=== PATIENT | female | born 1970 | race Caucasian/White ===

== ENCOUNTER 2019-05-20 08:14 | Outpatient (CLI) | payer OTHER, SELFPAY ==
--- NOTE | 2019-05-20 08:26 | MM_ITS ---
WS: [id number] BILATERAL DIGITAL DIAGNOSTIC MAMMOGRAM MAMMOGRAPHY WITH CAD CLINICAL INFORMATION: RT BREAST MASS HISTORY: Right breast lump COMPARISON: July 10, 2017 TECHNIQUE: Bilateral CC, MLO, and ML views. FINDINGS: The breasts are composed of heterogeneous fibroglandular density, which can limit the detection of sm all underlying mass lesions. Scattered punctate calcifications right breast. Palpable marker along th e right axillary tail. No definite mammographic abnormalities in this area. Ultrasound is pending. Unremarkable left breast. ULTRASOUND BREAST RIGHT TECHNIQUE: Ultrasound right breast focused area of concern. CLINICAL INFORMATION: RT BREAST MASS COMPARISON: None. FINDINGS: Ultrasound right breast area of concern axillary tail at 11-12:00 position. Normal-appearing underlyi ng breast tissue. No evidence of cystic or solid lesions. No lesions to target for biopsy. MM/[place] [id number] IMPRESSION: BI-RADS: 2-Benign FOLLOW UP: 1 Year Follow-up Recommend return to annual screening mammography.
== END 2019-05-20 08:15 | disposition home or self-care (01) ==
LOC: RADSHAW 08:16
PROVIDERS: Family Provider Family Medicine; PCP Family Medicine; Visit Provider Family Medicine
DX: N63.10 Unspecified lump in the right breast, unspecified quadrant (principal)
CPT/HCPCS: 76642; 77066

== ENCOUNTER → 2022-01-16 10:11 | Outpatient (BNVA) | payer OTHER, SELFPAY | PROVIDERS: Family Provider Family Medicine; PCP Family Medicine; Visit Provider Family Medicine | DX: Z00.00 Encounter for general adult medical examination without abnormal findings (principal) | CPT/HCPCS: 80053; 80061; 85025 ==

== ENCOUNTER → 2022-02-27 11:22 | Outpatient (BNVA) | payer OTHER, SELFPAY | PROVIDERS: Family Provider Family Medicine; PCP Family Medicine; Visit Provider Podiatrist Foot & Ankle Surgery | DX: M76.821 Posterior tibial tendinitis, right leg (principal); M24.571 Contracture, right ankle; M79.671 Pain in right foot | CPT/HCPCS: 73610; 73630 ==

== ENCOUNTER 2022-03-08 15:18 | Outpatient (CLI) | payer OTHER, SELFPAY ==
--- NOTE | 2022-03-08 15:36 | XR_ITS ---
WS: [id number] XR chest 2V* [id number] REASON FOR EXAM: hemoptysis FINDINGS: Mild tortuosity the thoracic aorta and normal heart size. Calcified granulomatous disease in both hemithoraces. No active pulmonary parenchymal or pleural disease. Mild degenerative spondylosis in the mid and lower thoracic spine. XR/XR chest 2V* [id number] IMPRESSION: No acute chest abnormality.
== END 2022-03-08 15:19 | disposition home or self-care (01) ==
PROVIDERS: PCP Family Medicine; Visit Provider Family Medicine
DX: R05.9 Cough, unspecified (principal)
CPT/HCPCS: 71046

== ENCOUNTER 2022-07-25 12:00 | Outpatient (CLI) | payer OTHER, SELFPAY | END 2022-07-25 12:01 | disposition home or self-care (01) | LOC: SLEEP 07-26 10:50 | PROVIDERS: PCP Family Medicine; Visit Provider Family Medicine | DX: G47.33 Obstructive sleep apnea (adult) (pediatric) (principal); G47.10 Hypersomnia, unspecified; R06.83 Snoring | CPT/HCPCS: G0399 ==

== ENCOUNTER → 2022-09-14 12:21 | Outpatient (BNVA) | payer OTHER, SELFPAY | PROVIDERS: PCP Family Medicine; Visit Provider Nurse Practitioner Family | DX: I10 Essential (primary) hypertension (principal) | CPT/HCPCS: 84443 ==

== ENCOUNTER → 2022-09-19 10:29 | Outpatient (BNVA) | payer OTHER, SELFPAY | PROVIDERS: PCP Family Medicine; Visit Provider Family Medicine | DX: R79.89 Other specified abnormal findings of blood chemistry (principal); I10 Essential (primary) hypertension; G47.33 Obstructive sleep apnea (adult) (pediatric) | CPT/HCPCS: 84439; 84481 ==

== ENCOUNTER → 2022-12-20 15:55 | Outpatient (BNVA) | payer OTHER, SELFPAY | PROVIDERS: PCP Family Medicine; Visit Provider Family Medicine | DX: E05.90 Thyrotoxicosis, unspecified without thyrotoxic crisis or storm (principal) | CPT/HCPCS: 84439; 84443; 84481 ==

== ENCOUNTER 2023-01-29 06:18 | Outpatient (CLI) | payer OTHER, SELFPAY ==
--- NOTE | 2023-01-29 06:30 | US_ITS ---
WS: [id number] Limited abdomen ultrasound. HISTORY: Palpable area along the mid abdominal wall. Ultrasound is directed to the mid abdominal wall and to the LEFT of midline. No mass identified. No p eristalsing loop of bowel. The visualized abdominal wall musculature appears intact. IMPRESSION: No abdominal wall abnormality identified in the area of concern.
== END 2023-01-29 06:19 | disposition home or self-care (01) ==
LOC: RAD 06:18
PROVIDERS: PCP Family Medicine; Visit Provider Family Medicine
DX: D17.9 Benign lipomatous neoplasm, unspecified (principal)
CPT/HCPCS: 76705

== ENCOUNTER → 2023-03-01 09:04 | Outpatient (BNVA) | payer OTHER, SELFPAY | PROVIDERS: PCP Family Medicine; Visit Provider Family Medicine | DX: Z00.00 Encounter for general adult medical examination without abnormal findings (principal); E05.90 Thyrotoxicosis, unspecified without thyrotoxic crisis or storm | CPT/HCPCS: 80053; 80061; 83036; 84443; 85025 ==

== ENCOUNTER → 2023-09-03 09:01 | Outpatient (BNVA) | payer OTHER, SELFPAY | PROVIDERS: PCP Family Medicine; Visit Provider Family Medicine | DX: R73.03 Prediabetes (principal); I10 Essential (primary) hypertension | CPT/HCPCS: 80053; 83036 ==

== ENCOUNTER → 2024-01-29 18:37 | Outpatient (BNVA) | payer OTHER, SELFPAY | PROVIDERS: PCP Family Medicine; Visit Provider Nurse Practitioner | DX: M25.561 Pain in right knee (principal) | CPT/HCPCS: 73562 ==

== ENCOUNTER → 2024-02-20 11:48 | Outpatient (BNVA) | payer OTHER, SELFPAY | PROVIDERS: PCP Family Medicine; Visit Provider Family Medicine | DX: F32.A Depression, unspecified (principal); R73.03 Prediabetes | CPT/HCPCS: 83036 ==

== ENCOUNTER 2024-07-20 08:34 | Outpatient (CLI) | payer SELFPAY ==
--- NOTE | 2024-07-20 09:30 | CT_ITS ---
WS: [id number] CT PELVIS WITH AND WITHOUT CONTRAST HISTORY: perineum drainage/ rule out abscess or fistula TECHNIQUE: Contiguous imaging is performed of the pelvis with and without contrast. Coronal and sagittal reformats are reviewed. All CT scans at [facility] use at least one of these dose optimization techniques: automated exposure control; mA and/or kV adjustment per patient size (includes targeted exams where dose is matched to clinical indication); or iterative reconstruction. DLP: 488.42 mGy COMPARISON: None available. Contrast: Omnipaque 350; 100 cc. No GI tract obstruction. No identifiable fistula is noted. Central air along the perineum may be within the distal anus along the vaginal canal. There is no identifiable well-circumscribed collection such as abscess. No fistula is identified. There is no air in the urinary bladder. No air within the central uterus. No peroneal collection. Mildly lobular uterus most likely fibroid uterus. LEFT ovarian follicle. No free fluid or adenopathy within the pelvis. CT/CT pelvis wo/w con [id number] IMPRESSION: 1. No identifiable fistula or abscess identified at the perineum. There is a s mall tract of air which may be entrapped air within the perineal structures. No abscess. The perineum itself is clear. 2. No inflammatory changes in the perineum.
[2024-07-20] MEDS: iohexol 350 mg/mL 500 mL Btl (per mL) IV (10:32)
== END 2024-07-20 08:35 | disposition home or self-care (01) ==
LOC: RAD 08:36
PROVIDERS: PCP Family Medicine; Visit Provider Family Medicine
DX: L02.215 Cutaneous abscess of perineum (principal); R93.89 Abnormal findings on diagnostic imaging of other specified body structures
CPT/HCPCS: 72194

== ENCOUNTER → 2024-09-24 09:15 | Outpatient (BNVA) | payer BC, SELFPAY | PROVIDERS: PCP Family Medicine; Visit Provider Family Medicine | DX: Z00.00 Encounter for general adult medical examination without abnormal findings (principal) | CPT/HCPCS: 80061; 83036 ==

== ENCOUNTER 2025-01-04 10:42 | Outpatient (CLI) | payer BC, SELFPAY ==
--- NOTE | 2025-01-04 11:00 | MR_ITS ---
WS: [id number] MRI PELVIS WITHOUT CONTRAST. COMPARISON: CT pelvis 07/20/2024 Multiplanar, multisequence imaging is performed without contrast. History: Peritoneal drainage. No bloody discharge. Rule out abscess or fistula. No fistula or soft tissue tract is identified through the perineum. There is no free fluid or adenopathy within the pelvis. Extending to the LEFT from the distal rectum is a 2.7 x 1.9 cm outpouching. This is probably a small diverticulum or tortuous tortuous loop of colon. This was present on the prior CT and thought to be related to tortuosity of the colon. There does appear to be fecal material present within it therefore this is probably a small diverticulum. This area should be further evaluated by colonoscopy if that has not been performed already. There is no tract extending through the perineum identified. There is a very tiny amount of increased T2 signal adjacent to the coccyx which is nonspecific. There is no mass. No pilonidal cyst identified. Uterus is midline. There is a small T2 hyperintense asymmetry in the RIGHT lateral endometrium towards the fundus measuring 10 x 8 mm. The remaining endometrium is normal. Both ovaries are identified and normal size. No destructive bone lesions are edema. MR/MR pelvis wo con* [id number] IMPRESSION: 1. No abscess or fistula is identified. 2. Focal outpouching from the LEFT lateral rectum. This is probably a small di verticulum or tortuous loop of rectum. There is no associated inflammation or o bstruction. This can be further evaluated by colonoscopy if that has not been p erformed. 3. Cystic dilatation in the endometrium towards the fundus. This can be furthe r evaluated by transvaginal pelvic ultrasound. This may be an area of adenomyos is. With history of prior endometrial ablation cystic changes in the subendomet rial zone can be seen.
== END 2025-01-04 10:43 | disposition home or self-care (01) ==
LOC: RAD 10:43
PROVIDERS: PCP Family Medicine; Visit Provider Family Medicine
DX: L02.215 Cutaneous abscess of perineum (principal); R93.89 Abnormal findings on diagnostic imaging of other specified body structures
CPT/HCPCS: 72195